=== PATIENT | female | born 1965 | race Caucasian/White ===

== ENCOUNTER → 2016-12-16 | Outpatient (CLI) | payer OTHER ==
[~2016-12-16] MED LIST: CLON0.5T PO; FLUO20CA12 PO
[2016-12-16 09:13] LABS: AUTOMATED NEUTROPHIL # 4.1 TH/MM3 (1.8-7.7); BASOPHIL % 0.5 % (0.0-2.0); EOSINOPHIL # 0.1 TH/MM3 (0-0.4); EOSINOPHIL % 1.6 % (0.0-4.0); HEMATOCRIT 38.1 % (35.0-46.0); HEMO FLAGS DIFF FINAL; LYMPH % 19.4 % (9.0-44.0); LYMPHOCYTE # 1.1 TH/MM3 (1.0-4.8); MEAN CELL VOLUME 98.2 FL (80.0-100.0); MEAN CORPUSCULAR HEMOGLOBIN 32.7 PG (27.0-34.0); MEAN CORPUSCULAR HGB CONC 33.3 % (32.0-36.0); MONO % 8.8 % (0.0-8.0); NEUT % 69.7 % (16.0-70.0); PLATELET COUNT 276 TH/MM3 (150-450); RED BLOOD COUNT 3.89 MIL/MM3 (4.00-5.30); RED CELL DISTRIBUTION WIDTH 13.9 % (11.6-17.2); WHITE BLOOD COUNT 5.8 TH/MM3 (4.0-11.0)
[2016-12-16 09:49] LABS: HDL CHOLESTEROL 65.7 MG/DL (40.0-60.0); LDL CHOLESTEROL 149 MG/DL (0-99)
[2016-12-16 15:22] LABS: HEMOGLOBIN A1a 1.2 %; HEMOGLOBIN A1b 0.8 %; HEMOGLOBIN Ao 85.1 %; HEMOGLOBIN LA1C 2.1 %; HEMOGLOBIN P3 3.6 %
== END ==
LOC: CLAB 08:40
PROVIDERS: ATTEND Family Medicine
DX: R53.83 Other fatigue (principal)
CPT/HCPCS: 36415; 80061; 82306; 83036; 84443; 85025

== ENCOUNTER → 2017-07-13 | Outpatient (CLI) | payer OTHER ==
[~2017-07-13] MED LIST changes: +CLAR10CA3 PO; +D3 U5000 PO
[2017-07-13 12:11] LABS: AUTOMATED NEUTROPHIL # 3.4 TH/MM3 (1.8-7.7); BASOPHIL % 0.6 % (0.0-2.0); EOSINOPHIL # 0.1 TH/MM3 (0-0.4); EOSINOPHIL % 1.3 % (0.0-4.0); HEMATOCRIT 41.4 % (35.0-46.0); HEMOGLOBIN 14.2 GM/DL (11.6-15.3); LYMPH % 23.8 % (9.0-44.0); LYMPHOCYTE # 1.2 TH/MM3 (1.0-4.8); MEAN CELL VOLUME 100.5 FL (80.0-100.0); MEAN CORPUSCULAR HEMOGLOBIN 34.5 PG (27.0-34.0); MEAN CORPUSCULAR HGB CONC 34.3 % (32.0-36.0); MEAN PLATELET VOLUME 7.5 FL (7.0-11.0); MONO % 6.9 % (0.0-8.0); MONOCYTE # 0.3 TH/MM3 (0-0.9); NEUT % 67.4 % (16.0-70.0); PLATELET COUNT 311 TH/MM3 (150-450); RED BLOOD COUNT 4.12 MIL/MM3 (4.00-5.30); RED CELL DISTRIBUTION WIDTH 13.3 % (11.6-17.2); WHITE BLOOD COUNT 5.1 TH/MM3 (4.0-11.0)
[2017-07-13 12:18] LABS: PROTHROMBIN TIME - PATIENT 10.4 SEC (9.8-11.6)
[2017-07-13 12:33] LABS: ALBUMIN 3.8 GM/DL (3.4-5.0); AST (GOT) 22 U/L (15-37); BICARBONATE 26.7 MEQ/L (21.0-32.0); BLOOD UREA NITROGEN 8 MG/DL (7-18); CALCIUM 9.5 MG/DL (8.5-10.1); CHLORIDE 104 MEQ/L (98-107); GLOMERULAR FILTRATION RATE 66 ML/MIN (>89); GLUCOSE,FASTING 78 MG/DL (74-99); SODIUM (NA) 136 MEQ/L (136-145)
[2017-07-13 12:34] LABS: ALT (GPT) 23 U/L (10-53)
[2017-07-13 12:36] LABS: ALKALINE PHOSPHATASE 108 U/L (45-117); TOTAL BILIRUBIN ADULT 0.4 MG/DL (0.2-1.0); TOTAL PROTEIN 7.7 GM/DL (6.4-8.2)
--- NOTE | 2017-07-14 18:59 | EKG ---
Date Performed: 07/13/2017 Time Performed: 10:58:28 PTAGE: 51 years EKG: Sinus rhythm LOW QRS VOLTAGE IN PRECORDIAL LEADS POSSIBLE ANTERIOR MYOCARDIAL INFARCTION, PROBABLY OLD BORDERLINE ECG NO PREVIOUS TRACING DOCTOR: Jaleel Strickland Interpretating Date/Time 07/14/2017 18:57:24
== END ==
LOC: CPRE 10:42
PROVIDERS: ATTEND Obstetrics & Gynecology Gynecologic Oncology
DX: Z01.812 Encounter for preprocedural laboratory examination (principal); Z01.810 Encounter for preprocedural cardiovascular examination; R19.09 Other intra-abdominal and pelvic swelling, mass and lump; R94.31 Abnormal electrocardiogram [ECG] [EKG]
CPT/HCPCS: 36415; 80053; 85025; 85610; 85730; 93005

== ENCOUNTER 2017-07-24 05:22 | Inpatient (IN) | payer OTHER ==
[~2017-07-24] VITALS: Ht 167.6 cm; Wt 78.8 kg
[2017-07-24] MEDS ORDERED: LACTATED RINGER'S 1000 ML IV PRN (06:00)
[2017-07-24] MEDS ORDERED: CHLORHEXIDINE GLUCONATE 2 % 1 PACK (2 CLOTHS) TOPICAL PRN (06:00)
[2017-07-24] MEDS ORDERED: ceFAZolin 2 GM PREMIX 50 ML IV SCH (06:00)
[2017-07-24] MEDS ORDERED: HEPARIN SODIUM - SQ 10,000 UNITS/ML VIAL SQ SCH (06:00)
[2017-07-24] MEDS ORDERED: POVIDONE IODINE 5% (ANTISEPSIS KIT) 4 APPLICATIONS EACH NARE PRN (06:00)
[2017-07-24] MEDS ORDERED: METOPROLOL TARTRATE 25 MG TAB PO PRN (06:00)
[2017-07-24] MEDS ORDERED: LIDOCAINE 1%/EPINEPHrine 1:100,000 SOLN 50 ML VIAL ONE (07:00)
[2017-07-24] MEDS ORDERED: ACETAMINOPHEN 1000 MG/100 ML 100 ML IV ONE (07:17)
[2017-07-24] MEDS ORDERED: BUPIVACAINE LIPOSOME PF 1.3% 20 ML VIAL ONE (07:17)
[2017-07-24] MEDS ORDERED: SUGAMMADEX SODIUM 200 MG/2 ML VIAL IV PUSH ONE (09:02)
[2017-07-24] MEDS ORDERED: HYDROmorphone HCL PF 2 MG/ML VIAL ONE (09:02)
[2017-07-24] MEDS ORDERED: ceFAZolin INJ 1,000 MG VIAL IV ONE ×2 (10:55→12:00)
[2017-07-24] MEDS ORDERED: SODIUM CHLORIDE 0.9% FLUSH 10 ML FLUSH IV FLUSH PRN (11:15)
[2017-07-24] MEDS ORDERED: MORPHINE SULFATE 30 MG/30 ML PCA IV SCH (11:15)
[2017-07-24] MEDS ORDERED: NALOXONE HCL 0.4 MG/ML AMP IV PUSH PRN (11:15)
[2017-07-24] MEDS ORDERED: MIDAZOLAM HCL 2 MG/2 ML VIAL ONE (11:44)
[2017-07-24] MEDS ORDERED: *MEPERIDINE 25 MG INJ VIAL PERIprocedural Use ONLY ONE (11:44)
[2017-07-24] MEDS ORDERED: LORazepam 0.5 MG TAB PO PRN (12:00)
[2017-07-24] MEDS ORDERED: VECURONIUM BROMIDE 20 MG VIAL IV ONE (12:00)
[2017-07-24] MEDS ORDERED: ONDANSETRON HCL 4 MG/2 ML VIAL IVP PRN (12:00)
[2017-07-24] MEDS ORDERED: SODIUM CHLORIDE 0.9% 20 ML VIAL IV ONE (12:00)
[2017-07-24] MEDS ORDERED: oxyCODONE/ACETAMINOPHEN 5 MG/325 MG TAB PO PRN (12:00)
[2017-07-24] MEDS ORDERED: PHENYLEPH/NS 1000 MCG/10 ML SYR IV ONE (12:00)
[2017-07-24] MEDS ORDERED: GLYCOPYRROLATE 1 MG/5 ML SYRINGE IV PUSH ONE (12:00)
[2017-07-24] MEDS ORDERED: PROPOFOL 200 MG/20 ML AMP IV ONE (12:00)
[2017-07-24] MEDS ORDERED: DEXAMETHASONE SOD PHOS 4 MG/ML VIAL IV ONE (12:00)
[2017-07-24] MEDS ORDERED: LIDOCAINE HCL 1% PF 5 ML SYRINGE OTHER ONE (12:00)
[2017-07-24] MEDS ORDERED: ONDANSETRON HCL 4 MG/2 ML VIAL IV ONE (12:00)
[2017-07-24] MEDS ORDERED: ROCURONIUM INJ 50 MG/5 ML SYRINGE IV PUSH ONE (12:00)
[2017-07-24] MEDS ORDERED: NORMOSOL R INJ 3,000 ML IV ONE (12:00)
[2017-07-24] MEDS ORDERED: NEOSTIGMINE 5 MG/5 ML SYRINGE IV PUSH ONE (12:00)
[2017-07-24] MEDS ORDERED: STERILE WATER FOR INJECTION 20 ML VIAL IV ONE (12:00)
[2017-07-24] MEDS ORDERED: *morphine SULFATE 4 MG/ML PERIprocedure ONLY ONE ×3 (12:11→13:03)
[2017-07-24] MEDS: D5-1/2 NS + KCL 20 MEQ INJ 1,000 ML IV SCH ×2 (12:15→21:13)
[2017-07-24] MEDS: KETOROLAC TROMETHAMINE 30 MG/ML (IVP) VIAL IVP SCH ×2 (12:19→18:07)
[2017-07-24] MEDS ORDERED: DO NOT ADM ANY ANTICOAGULANT DRUGS PRN (12:45)
[2017-07-24] MEDS: PCA - TOTAL MG MORPHINE DELIVERED PER SHIFT SCH ×2 (14:00→21:15)
[2017-07-24] MEDS: SODIUM CHLORIDE 0.9% FLUSH 10 ML FLUSH IV FLUSH SCH (21:00)
[2017-07-24 21:11] VITALS: BP 101/62; PULSE 73; RESP 16; TEMP 98.2; O2SAT 94
[2017-07-24] MEDS: clonazePAM 0.5 MG TAB PO SCH (21:13)
[2017-07-25 00:26] VITALS: BP 96/60; PULSE 66; RESP 18; TEMP 98.2; O2SAT 94
[2017-07-25] MEDS: KETOROLAC TROMETHAMINE 30 MG/ML (IVP) VIAL IVP SCH ×4 (00:30→17:37)
[2017-07-25 05:08] VITALS: BP 95/62; PULSE 83; RESP 16; TEMP 98; O2SAT 95
[2017-07-25] MEDS: diphenhydrAMINE HCL 25 MG CAP PO PRN ×3 (05:13→21:00)
[2017-07-25] MEDS: PCA - TOTAL MG MORPHINE DELIVERED PER SHIFT SCH ×3 (05:19→22:23)
[2017-07-25] MEDS: D5-1/2 NS + KCL 20 MEQ INJ 1,000 ML IV SCH ×2 (07:13→17:37)
--- NOTE | 2017-07-25 07:13 | HHI.PR ---
Subjective . c/o some discomfort, fatigue c/w surgery/anesthesia tolerating clear liquids Objective . 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 pod #1 doing satisfactory in early post-op period findings with preliminary path discussed spirometry, oob to chair, ambulate with assist continue chemist inorganic, hair x 24 hours Dorcas Lewis MD Jul 25, 2017 07:13
[2017-07-25 07:45] VITALS: BP 97/65; PULSE 63; RESP 16; TEMP 98.1; O2SAT 96
[2017-07-25] MEDS: LORATADINE 10 MG TAB PO SCH (07:56)
[2017-07-25] MEDS: FLUoxetine HCL 20 MG CAP PO SCH (07:56)
[2017-07-25] MEDS: SODIUM CHLORIDE 0.9% FLUSH 10 ML FLUSH IV FLUSH SCH ×2 (07:58→20:48)
[2017-07-25 11:53] VITALS: BP 126/69; PULSE 60; RESP 16; TEMP 98; O2SAT 96
--- NOTE | 2017-07-25 13:49 | MP ---
cc: CURTIS SCHUSTER MD DATE OF SURGERY 07/24/2017. PREOPERATIVE DIAGNOSIS Large complex pelvic mass. POSTOPERATIVE DIAGNOSES 1. Large right complex ovarian mass. 2. 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 3. Pelvic adhesions. PROCEDURE Exploratory laparotomy, total abdominal hysterectomy bilateral salpingo-oophorectomy (with resection of approximately 20 cm right ovarian mass), omentectomy, intraperitoneal biopsies, lysis of adhesions, intraperitoneal washings for cytology. SURGEON Curtis Schuster MD RESEARCH AND EVALUATION MANAGER [place] occupational therapy assistant. ANESTHESIA General endotracheal anesthesia. ESTIMATED BLOOD LOSS 200 cc. IV FLUIDS 3000 cc. URINE OUTPUT 200 cc. HISTORY A 51-year-old female found on exam and imaging to have a large mass in the pelvis thought to be of probable ovarian origin, complex in nature, large solid component. Tumor markers were not profoundly elevated. Also in her history is the fact that she has diagnosed with premenopausal breast cancer, underwent genetic evaluation, genetic testing. Preliminary findings suggest a BRCA mutation. Further imaging with a PET scan shows a large mass in the pelvis that probably would be of right ovarian origin and it was strongly PET-avid. Neither on CAT scan or PET scan was there any overt evidence to suggest metastatic disease. There is no adenopathy, no significant ascites, no intraperitoneal or retroperitoneal nodularity. FINDINGS On entry into the peritoneal cavity, a large mass was seen occupying the pelvis extending down into the posterior cul-de-sac extending up out of the pelvis to within perhaps 2-3 cm of the umbilicus. The capsule was completely intact and the mass appeared predominantly solid in its consistency. It was arising from and replacing the right ovary. The left tube and ovary and uterus grossly appeared normal. There was no palpably enlarged retroperitoneal pelvic or para-aortic lymph node. The omentum grossly appeared normal. Large and small bowel and adjacent mesentery appeared normal. The liver and diaphragm edges were smooth. No peritoneal implants, nodularity or other abnormality detected. Frozen section analysis of the ovarian mass showed it to be an adenocarcinoma favoring an endometrioid type adenocarcinoma. The uterus was inspected. There was no evidence of malignancy within the uterus. At completion of the case there was complete cytoreduction of tumor in that any grossly detectable tumor was confined to this large right ovarian mass, capsule intact which was completely resected. Additional biopsies were taken, results forthcoming to determine the presence or absence of microscopic metastatic disease and no gross evidence of disease beyond this ovarian mass. PROCEDURE She is taken to the operating room, placed in dorsal lithotomy position after general endotracheal anesthesia was administered and a TAP block was given by Anesthesia to assist in postop pain management. She was carefully positioned, padded appropriately. Arms were loosely out to the side. She was prepped and draped in sterile fashion, Ku catheter placed in the bladder. A time-out had been undertaken where she was identified by sight recognition and hospital ID bracelet and the proposed procedure was reviewed and confirmed. A midline incision was made from the symphysis to the umbilicus, carried down to the level of the fascia. The fascia was entered. The rectus muscles were in the midline. The peritoneal cavity was entered and the peritoneal incision was extended the length of the skin incision. A small amount of fluid in the pelvis was obtained. Additional washings were placed and withdrawn, collected for cytology. As the mass occupied the entire surgical exposure, anatomy was not yet able to be explored. Dissection was continued out with positioning blunt dissection and the mass was able to be withdrawn and elevated through the abdominal wall as adhesions were lysed between the colon and left pelvic sidewall with the posterior medial aspect of this mass. Now it was clear that this mass was arising from and replacing the right ovary. The right round ligament was doubly suture ligated and transected. Anterior and posterior leaves of the broad ligament were opened. The right ureter was identified. The right infundibulopelvic ligament was isolated. The intervening peritoneum was opened to the level of the pelvic brim. There is a friable, thin-wall area in the infundibulopelvic ligament were some bleeding was encountered but the infundibulopelvic ligament was doubly clamped proximally, clamped distally and the right utero-ovarian ligaments were clamped, rendering this hemostatic. The right infundibulopelvic ligament was transected, doubly suture tied and then suture ligated with 0 Vicryl sutures and then the right uteroovarian ligament was back-clamped and cut and the remaining adhesions were removed, thereby removing the right tube and ovary, sent for frozen section analysis. The vesicouterine peritoneum was dissected off the right side of the uterus and cervix and the posterior peritoneum was opened and the right uterine vessels were skeletonized, clamped, cut and suture ligated. The right cardinal, paracervical and uterosacral ligaments were isolated, clamped, cut and suture ligated in a stepwise fashion. Attention was directed towards the left side, the left round ligament doubly suture ligated, transected, anterior and posterior leaves of the broad ligament were opened. Additional adhesions were lysed to take the colon away from the pelvic sidewall to gain access to these structures. The left infundibulopelvic ligament was isolated. The intervening peritoneum was opened. The ureter was retracted posteriorly as the infundibulopelvic ligament was elevated to the level of the pelvic brim. It was doubly clamped, cut and suture ligated. The posterior peritoneum was opened along the left side of the uterus and cervix and the left vesicouterine peritoneum dissected off the lower uterine segment and cervix. The left uterine vessels were skeletonized. The left uterine vessels were now clamped, cut, suture-ligated as were the cardinal, paracervical and uterosacral ligaments and then curved Gutierrez clamps were placed below the cervix at the lateral vaginal angles and the specimen was removed with sharp dissection, cutting below the cervix, the cervix from the upper vagina. The specimen was inspected and the entire cervix was noted to be removed and this included uterus, cervix and the attached left tube and ovary. The vaginal cuff was closed supporting the edges with [id number] 0 Vicryl sutures, incorporating the edge of the uterosacral ligament, posterior peritoneum in mbdjjf-fa-tviag fashion, tied securely and the cuff was closed with interrupted [id number]-hl-[id number] 0 Vicryl sutures across the cuff which rendered it well supported and completely hemostatic. The pelvis was thoroughly irrigated. Small bleeders were rendered hemostatic with bipolar cautery. Peritoneal biopsies were obtained in a random fashion throughout the pelvis, although all peritoneal surfaces appeared normal. The anatomy was surveyed with findings as described above. Surgicel was placed in the lateral pelvic sidewalls and across the vaginal cuff. Laparotomy pads had been placed in the peritoneum to retract the bowel. These were now removed and inspection of the abdominal anatomy was carried out with findings as described above. Visual and manual inspection confirmed that all remaining foreign objects in the peritoneum had been removed. The omentum was brought into the operative field as the transverse colon was mobile and the infracolic omentum was inspected, grossly appeared normal. Nonvascular attachments to the transverse colon were taken down with cautery or sharp dissection. The vascular attachments were isolated, clamped, cut and suture ligated with 2-0 Vicryl sutures starting near the hepatic flexure, the dissection carried along the transverse colon toward the splenic flexure until the infracolic omentum was removed. Random peritoneal biopsies were then taken from the abdomen and combined with random pelvic peritoneal biopsies. The anatomy was again explored. Sites were inspected and noted be hemostatic. Anatomical changes consistent with her scoliosis were noted including some deviation of the great vessels toward her anatomical right but there was no adenopathy, no other abnormality detected. Visual and manual inspection again confirmed there were no remaining foreign objects in the peritoneal cavity. Preliminary counts were correct. It was felt that all reasonable surgical objectives had been completed. Frozen section had returned showing adenocarcinoma, as noted above. The abdominal wall was closed with 0 looped PDS in a running continuous modified Smead-Quiros fashion starting at the apices and meeting in the midpoint where sutures were tied. The subcutaneous tissue was irrigated, Benito's fascia reapproximated with interrupted 2-0 Vicryl sutures and the skin edges closed with a 3-0 Vicryl running subcuticular. Steri-Strips were placed across the incision, followed by dry sterile dressing. Final counts were correct. The pelvic exam confirmed no remaining foreign objects in the vagina. She was now returned to dorsal supine position and was pending reversal of anesthesia when I left the operating room to precede her to the Post-Anesthesia Care Unit. MD RONNI Garcia/MELISSA /5:09 AM /1:03 PM JAMES
[2017-07-25 15:19] LABS: AUTOMATED NEUTROPHIL # 5.8 TH/MM3 (1.8-7.7); BASOPHIL % 0.1 % (0.0-2.0); EOSINOPHIL % 0.2 % (0.0-4.0); HEMATOCRIT 27.7 % (35.0-46.0); HEMOGLOBIN 9.3 GM/DL (11.6-15.3); LYMPH % 14.1 % (9.0-44.0); LYMPHOCYTE # 1.1 TH/MM3 (1.0-4.8); MEAN CELL VOLUME 104.8 FL (80.0-100.0); MEAN CORPUSCULAR HEMOGLOBIN 35.2 PG (27.0-34.0); MEAN CORPUSCULAR HGB CONC 33.6 % (32.0-36.0); MEAN PLATELET VOLUME 7.9 FL (7.0-11.0); MONO % 7.6 % (0.0-8.0); MONOCYTE # 0.6 TH/MM3 (0-0.9); PLATELET COUNT 184 TH/MM3 (150-450); RED BLOOD COUNT 2.64 MIL/MM3 (4.00-5.30); RED CELL DISTRIBUTION WIDTH 13.4 % (11.6-17.2); WHITE BLOOD COUNT 7.5 TH/MM3 (4.0-11.0)
[2017-07-25 16:00] VITALS: BP 128/74; PULSE 66; RESP 16; TEMP 97.7; O2SAT 97
[2017-07-25 20:43] VITALS: BP 138/71; PULSE 70; RESP 18; TEMP 98.2; O2SAT 96
[2017-07-25] MEDS: clonazePAM 0.5 MG TAB PO SCH (20:48)
[2017-07-25 23:08] LABS: BICARBONATE 26.2 MEQ/L (21.0-32.0); CALCIUM 8.1 MG/DL (8.5-10.1); CREATININE 0.81 MG/DL (0.50-1.00)
[2017-07-26 00:08] VITALS: BP 120/70; PULSE 63; RESP 18; TEMP 98.5; O2SAT 95
[2017-07-26] MEDS: KETOROLAC TROMETHAMINE 30 MG/ML (IVP) VIAL IVP SCH ×4 (00:29→17:41)
[2017-07-26] MEDS: D5-1/2 NS + KCL 20 MEQ INJ 1,000 ML IV SCH ×2 (04:09→21:14)
[2017-07-26] MEDS: PCA - TOTAL MG MORPHINE DELIVERED PER SHIFT SCH ×3 (05:37→22:00)
[2017-07-26 05:41] VITALS: BP 147/80; PULSE 62; RESP 18; TEMP 97.8; O2SAT 95
--- NOTE | 2017-07-26 07:26 | HHI.PR ---
Subjective . no new c/o. tolerating po intake Objective . 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
[2017-07-26 08:18] VITALS: BP 141/89; PULSE 71; RESP 18; TEMP 98; O2SAT 96
[2017-07-26] MEDS: FLUoxetine HCL 20 MG CAP PO SCH (09:08)
[2017-07-26] MEDS: LORATADINE 10 MG TAB PO SCH (09:08)
[2017-07-26] MEDS: POLYETHYLENE GLYCOL 17 GM PKG PO SCH (09:09)
[2017-07-26] MEDS: SODIUM CHLORIDE 0.9% FLUSH 10 ML FLUSH IV FLUSH SCH ×2 (09:19→21:10)
[2017-07-26] MEDS: DOCUSATE SODIUM 100 MG CAP PO SCH ×2 (09:19→21:09)
[2017-07-26] MEDS: oxyCODONE/ACETAMINOPHEN 5 MG/325 MG TAB PO PRN ×2 (10:06→21:10)
[2017-07-26 12:00] LABS: AUTOMATED NEUTROPHIL # 6.8 TH/MM3 (1.8-7.7); BASOPHIL % 0.4 % (0.0-2.0); EOSINOPHIL # 0.1 TH/MM3 (0-0.4); EOSINOPHIL % 0.8 % (0.0-4.0); HEMOGLOBIN 11.7 GM/DL (11.6-15.3); LYMPH % 12.7 % (9.0-44.0); LYMPHOCYTE # 1.1 TH/MM3 (1.0-4.8); MEAN CELL VOLUME 101.6 FL (80.0-100.0); MEAN CORPUSCULAR HEMOGLOBIN 35.1 PG (27.0-34.0); MEAN CORPUSCULAR HGB CONC 34.6 % (32.0-36.0); MEAN PLATELET VOLUME 7.8 FL (7.0-11.0); MONO % 6.1 % (0.0-8.0); MONOCYTE # 0.5 TH/MM3 (0-0.9); PLATELET COUNT 243 TH/MM3 (150-450); RED BLOOD COUNT 3.34 MIL/MM3 (4.00-5.30); RED CELL DISTRIBUTION WIDTH 13.6 % (11.6-17.2); WHITE BLOOD COUNT 8.5 TH/MM3 (4.0-11.0)
[2017-07-26 12:07] VITALS: BP 109/76; PULSE 64; RESP 18; TEMP 98.6; O2SAT 96
[2017-07-26 12:22] LABS: BICARBONATE 23.6 MEQ/L (21.0-32.0); CALCIUM 8.3 MG/DL (8.5-10.1); CREATININE 0.72 MG/DL (0.50-1.00)
[2017-07-26 16:00] VITALS: BP 100/72; PULSE 66; RESP 18; TEMP 98.4; O2SAT 97
[2017-07-26 21:04] VITALS: BP 141/81; PULSE 79; RESP 19; TEMP 97.9; O2SAT 96
[2017-07-26] MEDS: clonazePAM 0.5 MG TAB PO SCH (21:09)
[2017-07-27] MEDS: D5-1/2 NS + KCL 20 MEQ INJ 1,000 ML IV SCH
[2017-07-27 00:49] VITALS: BP 91/57; PULSE 75; RESP 16; TEMP 97.9; O2SAT 95
[2017-07-27] MEDS: KETOROLAC TROMETHAMINE 30 MG/ML (IVP) VIAL IVP SCH ×2 (05:12)
[2017-07-27] MEDS: PCA - TOTAL MG MORPHINE DELIVERED PER SHIFT SCH (05:13)
[2017-07-27 05:14] VITALS: BP 113/74; PULSE 85; RESP 16; TEMP 98.2; O2SAT 95
[2017-07-27] MEDS: oxyCODONE/ACETAMINOPHEN 5 MG/325 MG TAB PO PRN (05:23)
[2017-07-27] MEDS ORDERED: OXYC1TAB63 PO (07:21)
[2017-07-27 08:00] VITALS: BP 119/80; PULSE 75; RESP 18; TEMP 97.6; O2SAT 97
[2017-07-27] MEDS: DOCUSATE SODIUM 100 MG CAP PO SCH (09:00)
[2017-07-27] MEDS: LORATADINE 10 MG TAB PO SCH (09:00)
[2017-07-27] MEDS: SODIUM CHLORIDE 0.9% FLUSH 10 ML FLUSH IV FLUSH SCH (09:00)
[2017-07-27] MEDS: FLUoxetine HCL 20 MG CAP PO SCH (09:00)
[2017-07-27] MEDS: POLYETHYLENE GLYCOL 17 GM PKG PO SCH (09:00)
[2017-07-27] MEDS: diphenhydrAMINE HCL 25 MG CAP PO PRN (09:19)
--- NOTE | 2017-07-31 11:44 | MD ---
cc: SHAYY NORIEGA M.D., RHONDA MD MOLPUS,MOY YATES MD, M.D. ADMISSION DATE: 07/24/2017 DISCHARGE DATE: 07/27/2017 PROCEDURE 07/24/2017: Exploratory laparotomy, total abdominal hysterectomy, bilateral salpingo-oophorectomy (with resection of 18-20 cm right ovarian mass), lysis of adhesions, omentectomy, peritoneal biopsies, peritoneal washings. HOSPITAL COURSE She did well in the hospital recovery. By postoperative day #3 she was tolerating solid food, ambulating without assistance. The Ku catheter had been removed and she was voiding. She was hemodynamically stable with adequate pain control and she was felt ready to go home. In's and out's 1398/2500. Labs drawn yesterday morning: H&H 11.7 and 34, white count 8.5. Electrolytes: Potassium 4.4, BUN and creatinine 3 and 0.72. PHYSICAL EXAMINATION VITAL SIGNS: Afebrile. Pulse 66-85, respirations 16-20, blood pressure 91-141/57-74. O2 saturations greater than or equal to 95%. GENERAL: Alert and oriented x3. LUNGS: Clear to auscultation. CARDIOVASCULAR: Regular rate and rhythm. ABDOMEN: Soft. Midline incision clean and dry. Outer dressing removed. Steri-Strips intact. 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 EXTREMITIES: Nontender. ASSESSMENT Postoperative day #3 doing well. Findings at the time of surgery and preliminary pathology reviewed. Activities and restrictions discussed. Questions were asked and answered. She expressed good understanding and agreed. PLAN Anticipate discharge to home. She is to resume prior medications. A prescription for Percocet is provided for pain. She is to contact our office to schedule follow up in 1-2 weeks or contact our office sooner should she have any questions or problems. MD RONNI Garcia/JOSE MARTIN /7:24 AM /11:33 AM
== END 2017-07-27 10:59 | disposition home or self-care (01) | DRG 738 ==
LOC: HSDC 05:22 → HSDI 11:12 → HCIN 18:18
PROVIDERS: ADMIT Obstetrics & Gynecology Gynecologic Oncology; ATTEND Obstetrics & Gynecology Gynecologic Oncology
PROC: 0UT20ZZ Resection of Bilateral Ovaries, Open Approach (ICD-10-PCS; 2017-07-24)
PROC: 0UB70ZZ Excision of Bilateral Fallopian Tubes, Open Approach (ICD-10-PCS; 2017-07-24)
PROC: 0DBW0ZX Excision of Peritoneum, Open Approach, Diagnostic (ICD-10-PCS; 2017-07-24)
PROC: 0DBU0ZZ Excision of Omentum, Open Approach (ICD-10-PCS; 2017-07-24)
PROC: 3E0T3BZ Introduction of Anesthetic Agent into Peripheral Nerves and Plexi, Percutaneous Approach (ICD-10-PCS; 2017-07-24)
PROC: 0UT90ZZ Resection of Uterus, Open Approach (ICD-10-PCS; principal; 2017-07-24 07:16)
DX: C56.1 Malignant neoplasm of right ovary (principal); M41.9 Scoliosis, unspecified; N73.6 Female pelvic peritoneal adhesions (postinfective)
CPT/HCPCS: 76937; 80048; 82948; 85025; 86850; 86900; 86901; 86920; 88112; 88305; 88307; 88331; 88341; 88342; 94150; C9290; J0131; J0690; J1100; J1170; J1644; J1885; J2175; J2250; J2270; J2370; J2405; J2710; J3010; J3480; J7120

== ENCOUNTER 2017-08-17 16:01 | Observation (INO) | payer OTHER ==
[~2017-08-17 16:01] MED LIST changes: -ACETAMINOPHEN 1000 MG/100 ML 100 ML IV ONE; -ACETAMINOPHEN/HYDROcodone 325 MG/5 MG TAB ONE; -HEPARIN SODIUM - IV 10,000 UNITS/10 ML VIAL ONE; -LACTATED RINGER'S 1000 ML INJ 1,000 ML ONE; -LIDOCAINE 1%/EPINEPHrine 1:100,000 SOLN 30 ML VIAL ONE; -LIDOCAINE HCL 1% PF 10 ML VIAL ONE; -MEPERIDINE HCL 25 MG/ML VIAL ONE; -MIDAZOLAM HCL 2 MG/2 ML VIAL ONE; -MORPHINE SULFATE 4 MG/ML INJ ONE; -ONDANSETRON HCL 4 MG/2 ML VIAL IV PUSH ONE; -PROPOFOL 100 MG/10 ML INJ IV ONE; -SODIUM CHLORIDE 0.9% INJ 10 ML ONE; -ceFAZolin 2 GM PREMIX 50 ML ONE
[2017-08-17] MEDS ORDERED: ACETAMINOPHEN/HYDROcodone 325 MG/5 MG TAB PO PRN ×2 (17:30)
[2017-08-17 17:40] VITALS: BP 119/77; PULSE 68; RESP 16; TEMP 97.4; O2SAT 99
--- NOTE | 2017-08-17 18:44 | HHI.PR ---
Subjective Subjective Notes Patient is doing pretty well with minor soreness following transfer from the PACU at [facility] after an iatrogenic pneumothorax was treated with a right chest tube following attempted right Nstioe-t-Lqbc placement. A left port was successfully placed. A postprocedural chest x-ray showed resolution of the right pneumothorax. Objective Vitals/I&O Vital Signs Date Time Temp Pulse Resp B/P (MAP) Pulse Ox O2 Delivery O2 Flow Rate FiO2 08/17/17 17:40 97.4 68 16 119/77 (91) 99 Cardiovascular: Regular Lungs: Clear Abdomen: Other (Patient is a small open wound in her upper midline incision a normal saline wet-to-dry dressing was placed. The wound is covered and hypertrophic granulation tissue is no sign of infection.) Narrative Exam All dressings are dry and intact. The right chest tube is in place. There is minimal to no bubbling across the air seal on the Pleur-evac. A/P Assessment and Plan Postop right pneumothorax treated with a right chest tube. Reexpansion of the lung on postprocedural chest x-ray. Plan right chest tube drainage with follow-up chest x-ray in the morning. If there is no evidence of pneumothorax we will put the patient on waterseal. Follow-up chest x-ray will be performed if there is no evidence of right pneumothorax consider removal of chest tube tomorrow afternoon or Monday morning. Ken Gibbs MD Aug 17, 2017 18:44
[2017-08-17] MEDS ORDERED: SODIUM CHLORIDE 0.9% FLUSH 10 ML FLUSH IV FLUSH PRN ×2 (19:00)
[2017-08-17] MEDS ORDERED: ONDANSETRON HCL 4 MG/2 ML VIAL IV PUSH PRN (19:00)
[2017-08-17] MEDS ORDERED: MORPHINE SULFATE 2 MG/ML INJ IV PUSH PRN (19:00)
[2017-08-17 20:00] VITALS: BP 116/72; PULSE 65; RESP 15; TEMP 96; O2SAT 100
[2017-08-17] MEDS: oxyCODONE/ACETAMINOPHEN 5 MG/325 MG TAB PO PRN (20:42)
[2017-08-17] MEDS: SODIUM CHLORIDE 0.9% FLUSH 10 ML FLUSH IV FLUSH SCH (20:43)
[2017-08-17] MEDS ORDERED: clonazePAM 0.5 MG TAB PO SCH (21:00)
[2017-08-17] MEDS ORDERED: SODIUM CHLORIDE 0.9% FLUSH 10 ML FLUSH IV FLUSH SCH (21:00)
[2017-08-18] VITALS: BP 125/77; PULSE 65; RESP 15; TEMP 96.1; O2SAT 100
[2017-08-18 04:00] VITALS: BP 127/81; PULSE 60; RESP 15; TEMP 96.7; O2SAT 94
--- NOTE | 2017-08-18 07:11 | RADRPT ---
EXAM DATE/TIME: 08/18/2017 06:00 [place] COMPARISON: No previous studies available for comparison. INDICATIONS : Discomfort right chest, evaluate right pneumothorax and chest tube MEDICAL HISTORY : ovarian carcinoma, pneumothorax SURGICAL HISTORY : Hysterectomy. chest tube, infusaport ENCOUNTER: Subsequent ACUITY: 2 days PAIN SCORE: 5/10 LOCATION: Right chest FINDINGS: The lungs are hypoaerated. Bibasilar airspace disease interesting of atelectasis is noted. There is no pneumothorax. Left-sided Cywufu-e-Osyp is noted. Severe scoliotic deformity is noted in the thoracolumbar spine. CONCLUSION: 1. Poor lung aeration with bibasilar atelectasis. 2. No evidence of pneumothorax. 3. Left-sided Knxbgd-o-Jwtx. Armando Mckeon MD on August 18, 2017 at 7:06 Board Certified Radiologist. This report was verified electronically.
[2017-08-18 08:00] VITALS: BP 141/79; PULSE 64; RESP 16; TEMP 95.3; O2SAT 98
--- NOTE | 2017-08-18 08:11 | HHI.PR ---
Subjective Subjective Notes Patient complains of right chest pain. She has not been short of breath. Objective Vitals/I&O Vital Signs Date Time Temp Pulse Resp B/P (MAP) Pulse Ox O2 Delivery O2 Flow Rate FiO2 08/18/17 04:00 96.7 60 15 127/81 (96) 94 Radiology Chest x-ray this morning demonstrates no evidence of pneumothorax. The right chest tube is in position. An end expiratory film demonstrates bibasilar atelectasis atelectasis and decreased aeration of bilateral lung wong Cardiovascular: Regular Lungs: Clear, Other (Right chest tube in position. The tube was actually kinked. It was unkinked. Of drainage within the Pleur-evac. There is no evidence of air leak with the Pleur-evac off suction. Suction was removed from the right chest tube.) Narrative Exam All dressings are dry and intact. There is no evidence of erythema. There is minimal ecchymotic change. Abdominal dressing is intact. It was changed last night. A/P Assessment and Plan Postop right pneumothorax treated with a right chest tube. No evidence of leak with patient on waterseal and with Valsalva/coughing maneuver. Right chest tube left on waterseal. A chest x-ray will be performed in a couple of hours. If there is no evidence of pneumothorax consider removal right chest tube. Possible discharge later today or tomorrow. Ken Gibbs MD Aug 18, 2017 08:11
[2017-08-18] MEDS ORDERED: LORATADINE 10 MG TAB PO SCH (09:00)
[2017-08-18] MEDS ORDERED: FLUoxetine HCL 20 MG CAP PO SCH (09:00)
[2017-08-18] MEDS ORDERED: CHOLECALCIFEROL (VIT D3) 5000 UNIT CAP PO SCH (09:00)
[2017-08-18] MEDS: SODIUM CHLORIDE 0.9% FLUSH 10 ML FLUSH IV FLUSH SCH (09:19)
[2017-08-18] MEDS: oxyCODONE/ACETAMINOPHEN 5 MG/325 MG TAB PO PRN (09:20)
--- NOTE | 2017-08-18 10:36 | RADRPT ---
EXAM DATE/TIME: 08/18/2017 09:50 [facility] COMPARISON: No previous studies available for comparison. INDICATIONS : Evaluate pneumothorax. MEDICAL HISTORY : ovarian carcinoma, pneumothorax SURGICAL HISTORY : Hysterectomy. chest tube, infusaport ENCOUNTER: Subsequent ACUITY: 3 days PAIN SCORE: 3/10 LOCATION: Bilateral chest FINDINGS: Right chest tube in good position without pneumothorax. Aegkdj-l-Tglq in good position . Lungs under aerated. There is no significant other consolidation. CONCLUSION: Right chest tube in place. Underated without pneumothorax Lam Carlson MD FACR on August 18, 2017 at 10:34 Board Certified Radiologist. This report was verified electronically.
[2017-08-18] MEDS ORDERED: FAMOTIDINE 20 MG TAB PO SCH (11:15)
[2017-08-18 12:00] VITALS: BP 124/66; PULSE 66; RESP 18; TEMP 96.7; O2SAT 96
--- NOTE | 2017-08-18 13:27 | RADRPT ---
EXAM DATE/TIME: 08/18/2017 12:52 [facility] COMPARISON: CHEST SINGLE AP, August 18, 2017, 6:00. INDICATIONS : S/p chest tube removal. MEDICAL HISTORY : ovarian carcinoma, hx of breast cancer SURGICAL HISTORY : Hysterectomy. chest tube, infusaport ENCOUNTER: Initial ACUITY: 2 days PAIN SCORE: 0/10 LOCATION: Bilateral chest FINDINGS: A single view of the chest demonstrates the lungs to be symmetrically aerated without evidence of mas s, infiltrate or effusion. The right chest tube has been removed. No pneumothorax. The cardiomediasti nal contours are unremarkable. Osseous structures are intact. Port-A-Cath overlies the left chest. CONCLUSION: No pneumothorax following right chest tube removal. Wilbert Frausto Jr., MD on August 18, 2017 at 13:24 Board Certified Radiologist. This report was verified electronically.
== END 2017-08-18 15:24 | disposition home or self-care (01) ==
LOC: N07A 17:25 → INTOOBSV 17:25
PROVIDERS: ADMIT Surgery Trauma Surgery; ATTEND Surgery Trauma Surgery
DX: J95.811 Postprocedural pneumothorax (principal); C56.9 Malignant neoplasm of unspecified ovary
CPT/HCPCS: 71045; G0378

== ENCOUNTER → 2017-08-17 | Day surgery (SDC) | payer OTHER ==
[~2017-08-17] MED LIST changes: +ACETAMINOPHEN 1000 MG/100 ML 100 ML IV ONE; +ACETAMINOPHEN/HYDROcodone 325 MG/5 MG TAB ONE; +HEPARIN SODIUM - IV 10,000 UNITS/10 ML VIAL ONE; +LACTATED RINGER'S 1000 ML INJ 1,000 ML ONE; +LIDOCAINE 1%/EPINEPHrine 1:100,000 SOLN 30 ML VIAL ONE; +LIDOCAINE HCL 1% PF 10 ML VIAL ONE; +MEPERIDINE HCL 25 MG/ML VIAL ONE; +MIDAZOLAM HCL 2 MG/2 ML VIAL ONE; +MORPHINE SULFATE 4 MG/ML INJ ONE; +ONDANSETRON HCL 4 MG/2 ML VIAL IV PUSH ONE; +OXYC1TAB63 PO; +PROPOFOL 100 MG/10 ML INJ IV ONE; +SODIUM CHLORIDE 0.9% INJ 10 ML ONE; +ceFAZolin 2 GM PREMIX 50 ML ONE
--- NOTE | 2017-08-17 10:24 | PD.PROCEDR ---
Procedure Note Procedure Operative report Preoperative diagnosis Ovarian cancer uterine cancer and breast cancer Postoperative diagnoses same Inability to access the right side for port placement Procedure Attempted right subclavian Wpcgil-v-Bjrw placement unsuccessful attempted cephalic vein cutdown unsuccessful due to small size of vein. Unsuccessful right internal jugular access. A left subclavian Ioixli-x-Eshs placement under direct fluoroscopy. Surgeon Ken Gibbs MD Director Of Accreditation Klaudia Gar MS3 Anesthesia Local 1% lidocaine with epinephrine plus TR VA Indications for procedure the patient is a very pleasant 51-year-old woman well familiar to me related to prior history of poorly differentiated breast cancer. She is undergoing chemotherapy through a right sided port. She was recently diagnosed with both ovarian and uterine cancer. Recommendations been made for chemotherapy. The patient desired placement of the port on the right side. Intraoperative findings the inability to access right subclavian vein with introducer needle. Cephalic vein cutdown attempted cephalic vein identified but the caliber the vein is too small to accept the Ovpavu-w-Oefv catheter. Attempted placement of right internal jugular vein unsuccessful. Left subclavian vein discovered and port placed without difficulty on the left side. Postoperative upright chest x-ray is pending. Estimated blood loss less than 20 mL. Description of procedure in detail The patient was identified as Aracelis Rivas taken the operating room placed in supine position. Sequential compression devices were placed on bilateral lower extremities. Neurology she was placed between the shoulder blades and IV sedation was created by anesthesia. Upper chest and neck were prepped and draped in usual sterile fashion with Betadine. A timeout procedure was performed. Following completion of timeout procedure everyone's satisfaction within the room the right subclavian area was infiltrated with local anesthetic. The patient was placed in Trendelenburg position. Several attempts to cannulate the right subclavian vein were unsuccessful. On one instance right subclavian artery was entered. The needle was removed and pressure was held. Subclavian approach was abandoned. Was determined the cephalic vein cutdown may be an alternative. The deltopectoral groove was palpated and the proposed incision was infiltrated with local anesthetic. Incision was carried out the scalpel and hemostasis control electrocautery. Dissection new posteriorly and cephalic vein was identified. It was isolated from surrounding tissues and 4-0 silk vessel Loop were placed proximally distally on the vessel. The vessel was hemisected. Using the vein PICC attempts to feed the catheter through the into the cephalic vein were unsuccessful. This attempt was abandoned in both the proximal and distal vein were ligated with 4-0 silk ligatures. The port had been placed into the previous port pocket on the right side and this was removed as well. Attempt was then made to access the right internal jugular vein and this was on sex successful as well. Using local anesthetic seeker needle venous structure was cannulated and then when the introducer needle was used the right carotid artery was entered. Again the needle was removed and pressure was held and abandoned attempts at accessing the right internal jugular vein. The patient remained hemodynamically stable. Was ventilating and oxygenating very well. I then elected to attempt left side placement of the port. Infiltration of local anesthetic left subclavian area was performed. Using an introducer needle with the patient Trendelenburg position left subclavian vein was entered without difficulty. The guidewire was advanced into appropriate position as seen on C-arm fluoroscopy. Small stab incision made at the guidewire exit site and the catheter was tunneled into a symmetrical position inferiorly where the port was placed into a port pocket. 2 2-0 Prolene stay sutures were used the catheter was tunneled to the guidewire exit site. A dilator and I think sheath were placed over the guidewire dilator got remove the catheter was fed through dilating sheath into appropriate position. C-arm fluoroscopy demonstrated tip of the catheter in the superior vena cava. Poor function was tested there was easy blood return for concentrated heparinized saline flush flow through the port. Important Drvrig-s-Rorl pocket was closed with 3-0 Vicryl for Monocryl. For Monocryl was placed at the entry site in the left subclavian area. The wounds on the right side were closed with 3-0 Vicryl and 4-0 Monocryl. Dressings were applied Metozolv inch brown Steri-Strips gauze and Tegaderm. Steri-Strips were placed over the needle insertion sites in the right neck. Patient tolerated the procedures and remained hemodynamically stable. An upright portable chest x-ray was ordered and is pending at this time. The patient is recovery room in stable condition. She is saturating well she is not tachycardic and her blood pressure is stable. Sponge needle and instrument counts were correct at the end of the case. Ken Gibbs MD Aug 17, 2017 10:24
--- NOTE | 2017-08-17 18:41 | PD.PROCEDR ---
Procedure Note Procedure Procedure note Preoperative diagnosis Iatrogenic right pneumothorax Postprocedure diagnosis Same Surgeon Ken Gibbs MD Anesthesia 1% lidocaine with epinephrine Versed 4 mg IV Indications this unfortunate 51-year-old woman with history of breast ovarian and uterine cancer. Plans were made for Rdgsgy-t-Cqqj placement. She had prior Infhyp-v-Unie in the right side and wish it replaced on the same side. I was unable to place the port on the right side. A port was placed on the left side. Postoperative chest x-ray demonstrated a 1-1-1/2 cm right pneumothorax. A chest x-ray several hours later showed increasing size of the pneumothorax. It was determined chest tube placement was indicated. The patient remained totally stable. Findings Successful placement 20 Sinhala right chest tube with reexpansion of right lung on postprocedure chest x-ray. Estimated blood loss minimal. Description of procedure in detail. Patient identified in the PACU [facility]. She was positioned in slight left lateral oblique position. Following IV sedation with 2 mg of Versed the right lateral chest wall was prepped with ChloraPrep. After the appropriate amount of time she was draped in a sterile fashion. A timeout procedure was performed. Following completion timeout procedure everyone's satisfaction within the room after mentioned local anesthetic was infiltrated in the right midclavicular line. A 2-3 cm transverse incision was made more local anesthetic was placed around the periosteum of the underlying rib. Local anesthetic was then infiltrated in the pleural cavity and the pleura. An additional 2 mg of intravenous Versed was provided to the patient. She was comfortable throughout the procedure. The pleura was entered with a hemostat and small amount of air was audibly heard leaving the chest cavity. A 20 Sinhala trocar chest tube was then placed into the pleural cavity without difficulty. It was sutured in position with 0 silk sutures which were tied securely to the chest tube. Xeroform 4 x 4's and wide foam tape were placed to complete the dressing. Wide foam tape was placed around the connections of the chest tube. Chest tube was connected to a Pleur-evac. There is minimal bubbling. Chest tube was connected to -20 cm suction. A postprocedure chest x- ray was performed with the above-mentioned findings. The patient tolerated the procedure well without apparent complication. Patient indicated it was a painless procedure. Ken Gibbs MD Aug 17, 2017 18:41
== END | disposition home or self-care (01) ==
LOC: ESDC 06:57
PROVIDERS: ATTEND Surgery Trauma Surgery
DX: Z45.2 Encounter for adjustment and management of vascular access device (principal); C56.9 Malignant neoplasm of unspecified ovary; C55 Malignant neoplasm of uterus, part unspecified; C50.919 Malignant neoplasm of unspecified site of unspecified female breast
CPT/HCPCS: 00532; 36561; 76000; 77001; C1788; J0131; J0690; J1644; J2175; J2250; J2270; J2405; J3010; J7120

== ENCOUNTER 2017-09-08 13:10 | Day surgery (SDC) | payer OTHER ==
[2017-09-08 13:49] VITALS: BP 106/81; PULSE 84; RESP 20; TEMP 97.6; O2SAT 97
[2017-09-08] MEDS ORDERED: PEGF6P SQ (13:58)
[2017-09-08] MEDS ORDERED: ZOFR8TAB4 SL (13:58)
[2017-09-08] MEDS ORDERED: IBUP200C (13:58)
--- NOTE | 2017-09-08 15:22 | PD.RAD ---
Post Procedure Progress Note Pre Procedure Diagnosis: (1) Breast cancer Post Procedure Diagnosis: (1) Port catheter in place (2) Breast cancer Procedure Date: Sep 08, 2017 Supervising Radiologist: Jarred Martinez Proceduralist/Assist: Jasmyne Rockwell, RT(R), Zamzam Collado, RT(R) Plan of Activity Patient to Unit: [facility] Patient Condition: Good See PACS Report for procedural detail/treatment Central Venous Access Device Procedure 1 Left Subclavian Infusaport Evaluation single lumen Findings: Catheter tip in contralateral brachiocephalic vein agains lateral wall. O/W intact and patent Jarred Martinez MD Sep 08, 2017 15:22
--- NOTE | 2017-09-08 15:56 | RADRPT ---
EXAM DATE/TIME: 09/08/2017 14:59 [facility] COMPARISON: No previous studies available for comparison. INDICATIONS : Patient with a history of ovarian cancer needs rwrcn-k-wfri evaluation. MEDICAL HISTORY : Smoker Ovarian cancer SURGICAL HISTORY : Cyvcy-l-sgln Lumpectomy Hysterectomy ENCOUNTER: Initial ACUITY: 1 week PAIN SCORE: 4/10 LOCATION: Left chest FLUORO TIME: 0.2 minutes IMAGE SERIES: 1 CONTRAST: 10 cc Omnipaque (iohexol) 350 PROCEDURE : 1. Access of Qwyrwf-w-pjmd. 2. Port patency injection. The risks, benefits and alternatives to the procedure were explained and verbal and written consent w as obtained. The patient was placed supine. The port was prepped in sterile fashion. Full sterile t echnique was used, including cap, mask, sterile gloves and gown, and a large sterile sheet. Hand hyg iene and 2% chlorhexidine prep was utilized per protocol for cutaneous antisepsis with appropriate dr y time for site. The previously placed port was accessed and positive contrast was injected for evaluation. Injection demonstrates a catheter to be intact without leakage. Catheter enters the left subclavian. Catheter tip is positioned in the contralateral brachiocephalic vein and abuts up against the lateral wall of the same CONCLUSION: 1. Left subclavian Vjyhef-w-Crsh catheter is intact and patent. 2. Catheter tip is somewhat shallow positioned in the contralateral brachiocephalic vein. The cathete r abuts up against the lateral wall of the same which would explain the difficulty with aspiration. T he port flushes without difficulty. Jarred Martinez MD on September 08, 2017 at 15:52 Board Certified Radiologist. This report was verified electronically.
== END 2017-09-08 15:35 | disposition home or self-care (01) ==
LOC: HROP 13:10 → HRIP 13:11 → HROP 15:35
PROVIDERS: ATTEND Surgery Trauma Surgery
DX: T85.698A Other mechanical complication of other specified internal prosthetic devices, implants and grafts, initial encounter (principal); C56.9 Malignant neoplasm of unspecified ovary; F17.200 Nicotine dependence, unspecified, uncomplicated; Z85.3 Personal history of malignant neoplasm of breast
CPT/HCPCS: 36598; J1642

== ENCOUNTER 2017-09-14 06:55 | Day surgery (SDC) | payer OTHER ==
[~2017-09-14] VITALS: Ht 170.2 cm; Wt 72.3 kg
[~2017-09-14 06:55] MED LIST changes: +IBUP200C; -OXYC1TAB63 PO; +PEGF6P SQ; +ZOFR8TAB4 SL
[2017-09-14 07:17] VITALS: BP 118/85; PULSE 81; RESP 20; TEMP 97.7; O2SAT 96
[2017-09-14] MEDS ORDERED: ceFAZolin 2 GM PREMIX 50 ML - implanted port/tunneled catheter insertion IV SCH ×3 (07:30→07:45)
[2017-09-14] MEDS ORDERED: VANCOMYCIN 1000 MG/NS 250 ML - implanted port/tunneled catheter IV SCH ×2 (07:30)
[2017-09-14] MEDS ORDERED: SODIUM CHLORIDE 0.9% 1000 ML IV SCH (07:30)
[2017-09-14] MEDS ORDERED: POVIDONE IODINE 5% (ANTISEPSIS KIT) 4 APPLICATIONS EACH NARE SCH (07:30)
[2017-09-14] MEDS ORDERED: CHLORHEXIDINE GLUCONATE 2 % 1 PACK (2 CLOTHS) TOPICAL SCH (07:30)
[2017-09-14] MEDS ORDERED: MIDAZOLAM HCL 2 MG/2 ML VIAL ONE ×2 (08:17→09:11)
[2017-09-14] MEDS ORDERED: LIDOCAINE 1%/EPINEPHrine 1:100,000 SOLN 30 ML VIAL ONE (08:44)
[2017-09-14 09:58] VITALS: BP 113/81; PULSE 85; RESP 20; TEMP 97.7; O2SAT 99
[2017-09-14 10:13] VITALS: BP 112/73; PULSE 80; RESP 20; O2SAT 98
--- NOTE | 2017-09-14 10:20 | PD.RAD ---
Post Procedure Progress Note Pre Procedure Diagnosis: (1) Breast cancer Post Procedure Diagnosis: (1) Breast cancer Procedure Date: Sep 14, 2017 Supervising Radiologist: Ken Ocampo Proceduralist/Assist: Parker De, RT(R), Janny Ahumada RT(R)(CV) Anesthesia: Conscious Sedation Plan of Activity Patient to Unit: [facility] Patient Condition: Good See PACS Report for procedural detail/treatment Central Venous Access Device Procedure 1 Right Internal Jugular Infusaport Placement single lumen Ken Ocampo MD Sep 14, 2017 10:20
--- NOTE | 2017-09-14 10:24 | RADRPT ---
EXAM DATE/TIME: 09/14/2017 00:00 [facility] COMPARISON: No previous studies available for comparison. INDICATIONS : Patient with hx of ovarian cancer. Left port has no blood return. MEDICAL HISTORY : 1. Ovarian cancer 2. pnuemothorax 3. smoker 4. breast cancer 5. arthritis SURGICAL HISTORY : 1. Port placments x2 2. Left breast lumpectomy ENCOUNTER: Initial ACUITY: 1 week PAIN SCORE: 0/10 SEDATION TIME: 60 minutes 1.) 6 mg midazolam (Versed) IV 2.) 300 mcg fentanyl (Sublimaze) IV Prophylactic antibiotics were administered with appropriate pre-procedure timing. Vancomycin within 2 hrs of procedure, Ancef (or alternative) within 1 hr of procedure. PROCEDURE : 1. Removal of Pbucvq-f-szfs. 2. Conscious sedation with continuous EKG and oximetry monitoring. The risk, benefits and potential complications of Tpxfvb-j-Wusx removal were discussed. Written conse nt was obtained. The patient was placed supine. The chest wall was prepped in sterile fashion. Full sterile techniqu e was used, including cap, mask, sterile gloves and gown, and a large sterile sheet. Hand hygiene an d 2% chlorhexidine and/or Betadine/alcohol prep was utilized per protocol for cutaneous antisepsis. The skin and subcutaneous tissues were infiltrated with local anesthetic solution. A small incision w as made, the subcutaneous pocket was opened. The port was dissected from the subcutaneous tissues and easily removed in one piece. The pocket incision was closed with subcuticular Vicryl suture. Steri -Strips were applied. Conscious sedation was performed with the prescribed dosages and duration as above in the presence of an independent trained radiology nurse to assist in the monitoring of the patient. EKG and oximetry remained stable throughout the procedure. The patient tolerated the procedure well and there were no complications. The patient was sent to post anesthesia recovery in stable condition. CONCLUSION: Uncomplicated port removal as above. Ken Ocampo MD on September 14, 2017 at 10:21 Board Certified Radiologist. This report was verified electronically.
[2017-09-14] MEDS ORDERED: SODIUM CHLORIDE 0.9% FLUSH 10 ML FLUSH IVF PRN (10:30)
--- NOTE | 2017-09-14 10:40 | RADRPT ---
EXAM DATE/TIME: 09/14/2017 08:15 [facility] COMPARISON: No previous studies available for comparison. INDICATIONS : Patient with ovarian cancer. Nonfunctioning left to be removed and right port to be placed for chemot herapy. MEDICAL HISTORY : 1. Breast cancer 2. ovarian cancer 3. Arthritis 4. scoliosis SURGICAL HISTORY : 1. numerous port placments and removals. 2. lt breast lumpectomy ENCOUNTER: Initial ACUITY: 1 week PAIN SCORE: 0/10 FLUORO TIME: 0.4 minutes IMAGE SERIES: 1 SEDATION TIME: 60 minutes ACCESS: Right internal jugular vein SEDATION: 1.) 6 mg midazolam (Versed) IV 2.) 300 mcg fentanyl (Sublimaze) IV Prophylactic antibiotics were administered with appropriate pre-procedure timing. Vancomycin within 2 hours of procedure, Ancef (or alternative) within 1 hour of procedure. DEVICE: 1. 8 [place] single lumen angiodynamics bioflo port PROCEDURE : 1. Continuous pulse oximetry and EKG monitoring. 2. Intravenous conscious sedation. 3. Ultrasound guidance for venous access. 4. Fluoroscopic guided implantable central venous port placement. The patient was placed supine. The neck was prepped in sterile fashion. Full sterile technique was u sed, including cap, mask, sterile gloves and gown, and a large sterile sheet. Hand hygiene and 2% ch lorhexidine Betadine was utilized per protocol for cutaneous antisepsis with appropriate dry time for site. Sterile gel and sterile probe cover were utilized for ultrasound guidance. The skin and sub cutaneous tissues were infiltrated with local anesthetic solution. Under direct ultrasound guidance, central venous access was accomplished in the targeted vessel. The ultrasound images depicting access guidance were stored and saved to PACS for permanent record. A s ubcutaneous pocket was created using blunt dissection. The port was introduced to the pocket. The c atheter tubing was fed through a subcutaneous tunnel to the venotomy site. The catheter tubing was c ut to a suitable length and then was introduced through a valved Peel-Away sheath and positioned with catheter tubing tip at the cavo-atrial junction level. The pocket incision was closed with subcutic ular Vicryl suture. Steri-Strips were applied. The port was flushed and locked with heparin solutio n per protocol. Sterile dressing was applied to the site. The patient tolerated the procedure well. Conscious sedation was performed with the prescribed dosages and duration as above in the presence of an independent trained radiology nurse to assist in the monitoring of the patient. EKG and oximetry remained stable throughout the procedure. The patient tolerated the procedure well and there were no complications. The patient was sent to post anesthesia recovery in stable condition. CONCLUSION: Uncomplicated ultrasound and fluoroscopic guided implanted central venous port catheter placement as described in detail above. An 8 [place] Power port was placed. Ken Ocampo MD on September 14, 2017 at 10:22 Board Certified Radiologist. This report was verified electronically.
[2017-09-14 10:43] VITALS: BP 111/73; PULSE 74; RESP 20; O2SAT 98
[2017-09-14 11:13] VITALS: BP 98/65; PULSE 78; RESP 20; O2SAT 96
== END 2017-09-14 12:21 | disposition home or self-care (01) ==
LOC: HROP 06:55 → HRIP 06:58 → HROP 12:21
PROVIDERS: ATTEND Nurse Practitioner Family
DX: Z45.2 Encounter for adjustment and management of vascular access device (principal); C56.9 Malignant neoplasm of unspecified ovary; M41.9 Scoliosis, unspecified; Z85.3 Personal history of malignant neoplasm of breast
CPT/HCPCS: 36561; 36590; 76937; 77001; 99152; 99153; C1788; J0690; J1642; J2250; J3010; J3370; J7030; J7050